=== PATIENT | female | born 1995 | race Caucasian/White ===

== ENCOUNTER 2017-06-27 13:04 | Emergency (ER) | payer MEDICAID, SELFPAY ==
[2017-06-27 14:20] VITALS: BP 126/69; PULSE 92; RESP 14; TEMP 36.8; O2SAT 95; BMI 28.3
[2017-06-27 14:38] LABS: Appearance,Urine SL CLOUDY (Clear); Bilirubin,Urine Negative (Negative); Blood, Urine 3+ (Negative); Color,Urine RED (Yellow); Glucose,Urine (UA) Negative (Negative); Ketones,Urine Negative (Negative); Leukocyte Esterase,Urine Negative (Negative); Microscopic, Urine URINE MICROSCOPIC (MICROSCOPIC); Nitrate,Urine Negative (Negative); Protein,Urine 1+ (Negative); Urobilinogen,Urine 0.2 EU/dl (0.2)
[2017-06-27 14:41] LABS: Urine Pregnancy, HCG Qual. Negative (Negative)
[2017-06-27 14:52] LABS: Bacteria,Urine 1+ /lpf; RBC,Urine TNTC #/hpf (0-3)
--- NOTE | 2017-06-27 14:54 | HMH.EDUROGF ---
ED Disposition Referrals: Sin Tomas MD [Primary Care Provider] - Attestation: On 06/27/17, the high probability of a clinically significant, sudden or life threatening deterioration of the following system(s) required my full and direct attention, intervention and personal management. The time I documented below is in addition to time spent performing reported procedures but includes the following listed in this critical care notation. Medical Decision Making Vital Signs: 06/27/17 14:20 Temperature 98.2 F Temperature Source Oral Pulse Rate [Left Brachial] 92 H Respiratory Rate 14 Blood Pressure [Right Arm] 126/69 Blood Pressure Mean [Right Arm] 88 Blood Pressure Source [Right Arm] Automatic Cuff Blood Pressure Position [Right Arm] Sitting 02 Sat by Pulse Oximetry 95 Oxygen Delivery Method Room Air - Lab Data Lab Results 06/27/17 14:30: Urine Color Red, Urine Appearance Sl cloudy, Urine pH 6.0, Ur Specific [place] 1.020, Urine Protein 1+, Urine Glucose (UA) Negative, Urine Ketones Negative, Urine Blood 3+, Urine Nitrate Negative, Urine Bilirubin Negative, Urine Urobilinogen 0.2, Ur Leukocyte Esterase Negative, Urine RBC Tntc, Urine WBC None, Ur Squamous Epith Cells 3-5, Urine Bacteria 1+ 06/27/17 14:30: Urine HCG, Qual Negative Female Urogenital HPI - General Chief complaint: Vaginal Bleeding Stated complaint: excessive vaginal bleeding Mode of Arrival: Ambulatory Limitations: No Limitations Description of Symptoms (Recalled from ER Triage Doc. by RN): PT ADVISES SHE HAD A PERIOD LAST WEEK AND THEN STARTED BLEEDING A FEW DAYS. AGO AND THIS MORNING IT WAS VERY HEAVY. ALSO C/O CRAMPING. PT ADVISES IT IS. BRIGHT RED BLOOD AND HAS SLOWED DOWN THIS AFTERNOON - History of Present Illness : unsure - Related Data Home Medications Medication Instructions Recorded Confirmed No Known Home Medications [No 06/27/17 06/27/17 Known Home Medications] Allergies Allergy/AdvReac Type Severity Reaction Status Date / Time No Known Allergies Allergy Verified 06/27/17 14:17 [facility] History Medical History: Denies:: Cancer, Diabetes Mellitus Type 1, Diabetes Mellitus Type 2, MRSA Amputation: No Fractures: No - *Social History Smoking Status: Current every day smoker Tobacco Type: cigarettes Alcohol Intake: never - Psychiatric History Expresses thoughts of harming self/others: None Suicide Plan Description: No Plan
--- NOTE | 2017-06-27 14:57 | ED_ITS ---
ED Disposition Referrals: Sin Tomas MD [Primary Care Provider] - Attestation: On 06/27/17, the high probability of a clinically significant, sudden or life threatening deterioration of the following system(s) required my full and direct attention, intervention and personal management. The time I documented below is in addition to time spent performing reported procedures but includes the following listed in this critical care notation. Medical Decision Making Vital Signs: 06/27/17 14:20 Temperature 98.2 F Temperature Source Oral Pulse Rate [Left Brachial] 92 H Respiratory Rate 14 Blood Pressure [Right Arm] 126/69 Blood Pressure Mean [Right Arm] 88 Blood Pressure Source [Right Arm] Automatic Cuff Blood Pressure Position [Right Arm] Sitting 02 Sat by Pulse Oximetry 95 Oxygen Delivery Method Room Air - Lab Data Lab Results 06/27/17 14:30: Urine Color Red, Urine Appearance Sl cloudy, Urine pH 6.0, Ur Specific [place] 1.020, Urine Protein 1+, Urine Glucose (UA) Negative, Urine Ketones Negative, Urine Blood 3+, Urine Nitrate Negative, Urine Bilirubin Negative, Urine Urobilinogen 0.2, Ur Leukocyte Esterase Negative, Urine RBC Tntc , Urine WBC None, Ur Squamous Epith Cells 3-5, Urine Bacteria 1+ 06/27/17 14:30: Urine HCG, Qual Negative Female Urogenital HPI - General Chief complaint: Vaginal Bleeding Stated complaint: excessive vaginal bleeding Mode of Arrival: Ambulatory Limitations: No Limitations Description of Symptoms (Recalled from ER Triage Doc. by RN): PT ADVISES SHE HAD A PERIOD LAST WEEK AND THEN STARTED BLEEDING A FEW DAYS. AGO AND THIS MORNING IT WAS VERY HEAVY. ALSO C/O CRAMPING. PT ADVISES IT IS. BRIGHT RED BLOOD AND HAS SLOWED DOWN THIS AFTERNOON - History of Present Illness : unsure - Related Data Home Medications Medication Instructions Recorded Confirmed No Known Home Medications [No 06/27/17 06/27/17 Known Home Medications] Allergies Allergy/AdvReac Type Severity Reaction Status Date / Time No Known Allergies Allergy Verified 06/27/17 14:17 [facility] History Medical History: Denies:: Cancer, Diabetes Mellitus Type 1, Diabetes Mellitus Type 2, MRSA Amputation: No Fractures: No - *Social History Smoking Status: Current every day smoker Tobacco Type: cigarettes Alcohol Intake: never - Psychiatric History Expresses thoughts of harming self/others: None Suicide Plan Description: No Plan
--- NOTE | 2017-06-27 15:57 | HMH.EDUROGF ---
ED Disposition Clinical Impression: Menometrorrhagia, Menometrorrhagia Disposition: Home, Self-Care Condition on Discharge: Good Additional Instructions: Aleve or Ibuprofen over the counter, see archaeologist of choice for follow up Referrals: Sin Tomas MD [Primary Care Provider] - Meliton White MD [Staff Physician] - Boogie De Luna MD [Staff Physician] - - Critical Care Critical Care Time: No Attestation: On 06/27/17, the high probability of a clinically significant, sudden or life threatening deterioration of the following system(s) required my full and direct attention, intervention and personal management. The time I documented below is in addition to time spent performing reported procedures but includes the following listed in this critical care notation. Medical Decision Making Vital Signs: 06/27/17 14:20 Temperature 98.2 F Temperature Source Oral Pulse Rate [Left Brachial] 92 H Respiratory Rate 14 Blood Pressure [Right Arm] 126/69 Blood Pressure Mean [Right Arm] 88 Blood Pressure Source [Right Arm] Automatic Cuff Blood Pressure Position [Right Arm] Sitting 02 Sat by Pulse Oximetry 95 Oxygen Delivery Method Room Air - Lab Data Lab results reviewed: Yes: I reviewed the patient's lab results. Lab Results 06/27/17 14:30: Urine Color Red, Urine Appearance Sl cloudy, Urine pH 6.0, Ur Specific [place] 1.020, Urine Protein 1+, Urine Glucose (UA) Negative, Urine Ketones Negative, Urine Blood 3+, Urine Nitrate Negative, Urine Bilirubin Negative, Urine Urobilinogen 0.2, Ur Leukocyte Esterase Negative, Urine RBC Tntc, Urine WBC None, Ur Squamous Epith Cells 3-5, Urine Bacteria 1+ 06/27/17 14:30: Urine HCG, Qual Negative 06/27/17 15:25: WBC 7.1, RBC 4.86, Hgb 15.8, Hct 46.6, MCV 95.9, MCH 32.5 H, MCHC 33.9, RDW 13.0, Plt Count 189, MPV 8.8, Neut % (Auto) 69.9, Lymph % (Auto) 24.3, [place] % (Auto) 4.6, Eos % (Auto) 1.0, Baso % (Auto) 0.2, Neut # (Auto) 5.0, Lymph # (Auto) 1.7, [place] # (Auto) 0.3, Eos # (Auto) 0.1, Baso # (Auto) 0.0 Result diagrams: 06/27/17 15:25 - Dougie Inquiry Pt receiving controlled substance: No Female Urogenital HPI - General Chief complaint: Vaginal Bleeding Stated complaint: excessive vaginal bleeding Time Seen by Provider: 06/27/17 15:45 Mode of Arrival: Ambulatory Limitations: No Limitations Description of Symptoms (Recalled from ER Triage Doc. by RN): PT ADVISES SHE HAD A PERIOD LAST WEEK AND THEN STARTED BLEEDING A FEW DAYS. AGO AND THIS MORNING IT WAS VERY HEAVY. ALSO C/O CRAMPING. PT ADVISES IT IS. BRIGHT RED BLOOD AND HAS SLOWED DOWN THIS AFTERNOON - History of Present Illness HPI Narrative: Patient sent over from urgent treatment center with complaint of vaginal bleeding. She states she has gone through multiple pads today, but bleeding is better controlled. LMP was 2-3 weeks ago. She has been on Depo-Provera, and menses have been irregular. Received antibiotics for presumed STD approximately 1 month ago. She has not had any vaginal discharge since that time and no lesions. No fever. No vomiting. She reports a little bit of pelvic cramping that is nonradiating and is not unilateral in nature. See test was obtained on arrival to the emergency department and noted to be negative. MD Complaint: vaginal bleeding Severity: mild Relieving factors: none Exacerbating factors: none Vaginal discharge: blood : unsure Associated symptoms: denies other symptoms - Related Data Home Medications Medication Instructions Recorded Confirmed No Known Home Medications [No 06/27/17 06/27/17 Known Home Medications] Allergies Allergy/AdvReac Type Severity Reaction Status Date / Time No Known Allergies Allergy Verified 06/27/17 14:17 [facility] History Medical History: Denies:: Cancer, Diabetes Mellitus Type 1, Diabetes Mellitus Type 2, MRSA Amputation: No Fractures: No - *Social History Smoking Status: Current every day smoker To
[2017-06-27 16:20] LABS: Basophils % 0.2 % (0.1-2.0); Eosinophils # 0.1 K/mm3 (0.0-0.4); Hematocrit 46.6 % (37.0-47.0); Hemoglobin 15.8 g/dL (12.2-16.2); Lymphocytes # 1.7 K/mm3 (0.7-4.5); Lymphocytes % 24.3 K/mm3 (10-50); Mean Corpuscular HGB Conc 33.9 g/dL (31.8-35.4); Mean Corpuscular Hemoglobin 32.5 pg (27.0-31.2); Mean Corpuscular Volume 95.9 fl (81-99); Mean Platelet Volume 8.8 fl (7.4-10.4); Monocytes # 0.3 K/mm3 (0.1-1.0); Monocytes % 4.6 % (1.7-9.3); Neutrophils % 69.9 % (37.0-80.0); Platelet Count 189 K/mm3 (142-424); Red Blood Count 4.86 M/mm3 (4.20-5.40); White Blood Count 7.1 K/mm3 (4.8-10.8)
[2017-06-27 16:45] VITALS: BP 118/60; PULSE 65; RESP 14; TEMP 37.1; O2SAT 98
[2017-06-30 17:14] LABS: Neisseria gonorrhoeae, NAA Negative (Negative)
== END 2017-06-27 16:48 | disposition home or self-care (01) ==
LOC: UTC 13:09 → ER 14:12
PROVIDERS: Emergency Medicine; Emergency Provider Nurse Practitioner; Family Provider Family Medicine; PCP Family Medicine
DX: N92.1 Excessive and frequent menstruation with irregular cycle (principal)
CPT/HCPCS: 81001; 81025; 85025; 99203; 99282

== ENCOUNTER → 2019-11-29 10:21 | Outpatient (CLI) | payer OTHER, SELFPAY ==
[2019-11-29 11:27] LABS: Basophils % 0.4 % (0.1-2.0); Eosinophils # 0.1 K/mm3 (0.0-0.4); Eosinophils % 1.2 % (0.1-12.0); Hematocrit 45.9 % (37.0-47.0); Lymphocytes # 1.5 K/mm3 (0.7-4.5); Lymphocytes % 20.2 % (10-50); Mean Corpuscular HGB Conc 34.9 g/dL (31.8-35.4); Mean Corpuscular Hemoglobin 34.2 pg (27.0-31.2); Mean Platelet Volume 8.8 fl (7.4-10.4); Monocytes # 0.3 K/mm3 (0.1-1.0); Monocytes % 4.2 % (1.7-9.3); Neutrophils # 5.5 K/mm3 (1.8-7.8); Platelet Count 186 K/mm3 (142-424); Red Blood Count 4.68 M/mm3 (4.20-5.40); Red Cell Distribution Width 13.6 % (11.5-17.5); White Blood Count 7.4 K/mm3 (4.8-10.8)
[2019-11-29 11:43] LABS: Chloride 102 mmol/L (98-107); Potassium 4.4 mmoL/L (3.5-5.1); Sodium 136 mmol/L (136-145)
[2019-11-29 11:46] LABS: Alanine Aminotransferase 15 U/L (12-78); Albumin Level 4.5 g/dl (3.5-5.0); Albumin/Globulin Ratio 1.9 (1.1-1.8); Alkaline Phosphatase 56 U/L (38-126); Anion Gap 9.4 mEq/L (5-15); Aspartate Amino Transferase 23 U/L (14-36); Bilirubin,Total 1.1 mg/dl (0.2-1.3); Blood Urea Nitrogen 10 mg/dl (7-17); Calcium 9.3 mg/dl (8.4-10.2); Carbon Dioxide 29 mmol/L (22.0-30.0); Cholesterol 154 mg/dl (140-200); Estimated Glomerular Filt Rate 76 ml/min (>60); GFR (African American) 92 ML/MIN (>60); Globulin 2.4 g/dL (1.3-3.2); Glucose 89 mg/dl (74-100); Total Protein,Serum 6.9 g/dl (6.3-8.2); Triglycerides 106 mg/dl (30-150); VLDL Cholesterol 21 mg/dL (0-40)
[2019-11-29 11:47] LABS: Chol/HDL Ratio 2.5 (1-3.5); HDL Cholesterol 61 mg/dl (40-60)
[2019-11-29 11:57] LABS: Direct LDL Cholesterol 94.54 mg/dL (100-129)
[2019-11-29 12:17] LABS: Thyroid Stimulating Hormone 1.63 uIU/mL (0.465-4.68)
[2019-11-30 07:31] LABS: Testosterone,Total 83 ng/dL (8-48)
[2019-11-30 09:28] LABS: Prolactin 16.5 ng/mL (4.8-23.3)
[2019-11-30 12:18] LABS: Insulin Level Total 6.9 uIU/mL (2.6-24.9)
== END ==
PROVIDERS: Visit Provider Obstetrics & Gynecology Gynecology
DX: Z00.01 Encounter for general adult medical examination with abnormal findings (principal)
CPT/HCPCS: 36415; 80053; 80061; 82626; 83036; 83525; 84146; 84403; 84443; 85025